=== PATIENT | female | born 1980 | race Caucasian/White ===

== ENCOUNTER 2016-08-27 11:47 | Emergency (ER) | payer OTHER ==
[2016-08-27] MEDS ORDERED: methylPREDNISolone INJ 125 MG/2 ML VIAL (J2930) As Ordered ONE (13:05)
[2016-08-27] MEDS ORDERED: KETOROLAC 30 MG/ML VIAL (J1885) As Ordered ONE (13:05)
[2016-08-27] MEDS ORDERED: IPRATROPIUM 0.5MG/ALBUTEROL 2.5MG INH SOL UD 3ML (DUONEB)(J7620) As Ordered ONE (13:21)
[2016-08-27 13:34] LABS: BASO # 0.1 K/mm3 (0.0-0.2); BASO % 2.3 % (0.0-1.0); EOS # 0.1 K/mm3 (0.0-0.50); EOS % 1.8 % (0.0-3.0); LARGE UNSTAINED CELL # 0.1 K/mm3 (0.0-0.4); LARGE UNSTAINED CELL % 2.5 % (0.0-4.0); LYMPH # 1.2 K/mm3 (1.5-4.5); LYMPH % 22.6 % (24.0-44.0); MEAN CORPUSCULAR HEMOGLOBIN 31.8 pg (27.0-33.0); MEAN CORPUSCULAR HGB CONC 34.5 g/dl (32.0-36.5); MEAN CORPUSCULAR VOLUME 92.2 fl (80.0-96.0); MONO # 0.7 K/mm3 (0.0-0.8); MONO % 14.1 % (0.0-5.0); NEUTROPHILS # 2.7 K/mm3 (1.8-7.7); NEUTROPHILS % 56.7 % (36.0-66.0); PLATELET COUNT, AUTOMATED 180 k/mm3 (150-450); RED CELL DISTRIBUTION WIDTH 13.3 % (11.5-14.5); WHITE BLOOD COUNT 4.8 K/mm3 (4.0-10.0)
[2016-08-27 13:40] LABS: INR 0.91
[2016-08-27 13:48] LABS: ANION GAP 9 MEQ/L (8-16); BLOOD UREA NITROGEN 13 MG/DL (7-18); CALCIUM LEVEL 9.2 MG/DL (8.5-10.1); CARBON DIOXIDE LEVEL 25 MEQ/L (21-32); CHLORIDE LEVEL 106 MEQ/L (98-107); CREATININE FOR GFR 1.03 MG/DL (0.55-1.02); GLOMERULAR FILTRATION RATE > 60.0 (>60); GLUCOSE, FASTING 83 MG/DL (70-105); SODIUM LEVEL 140 MEQ/L (136-145)
[2016-08-27] MEDS ORDERED: ISOVUE-370 76% 100ML VIAL (Q9967) As Ordered ONE (13:52)
--- NOTE | 2016-08-27 14:22 | REP ---
Clinical: Acute chest pain. Technique: Axial contrast enhanced images from the thoracic inlet to the upper abdomen using 100 ml Isovue 370 intravenous contrast material with coronal and sagittal re-formations. Findings: Satisfactory enhancement of the pulmonary vasculature is achieved and no filling defects are identified to suggest pulmonary embolus. Thoracic aorta is normal caliber without aneurysm or dissection. Heart and pericardium are normal. Bilateral lung aguirre are well aerated and clear without acute pulmonary parenchymal consolidation or atelectasis. No nodule or mass lesion. No pleural effusion/reaction. No pneumothorax. No adenopathy. Impression: No evidence for pulmonary embolus. No acute pleuroparenchymal or mediastinal process. Signed by Yazan Haskins MD 08/27/2016 02:13 P
--- NOTE | 2016-08-27 14:33 | EDDOCDS ---
Physician Documentation [facility] Name: Patience Tan Age: 36 yrs Sex: Female : 1980 Arrival Date: 08/27/2016 Time: 11:47 Bed I6 / 28 Private MD: WISAM MINOR Disposition: 08/27/16 14:19 Discharged to Home/Self Care. Impression: Chest pain, unspecified, Acute bronchitis. - Condition is Stable. - Discharge Instructions: Acute Bronchitis, Nonspecific Chest Pain. - Prescriptions for Prednisone 20 mg Oral Tablet - take 1 tablet by ORAL route once daily for 5 days; 5 tablet. Zithromax Z- Satish 250 mg Oral Tablet - take 1 tablet by ORAL route as directed for 5 days Day 1- take two tablets once. Day 2, 3, 4 , 5 take one tablet once daily.; 6 tablet. Albuterol Sulfate 90 mcg/actuation Inhalation HFA Aerosol Inhaler - inhale 2 puff by INHALATION route every 4 hours As needed; 1 Inhaler. - Medication Reconciliation, Local Pharmacy Hours form. - Follow up: Emergency Department; When: As needed; Reason: Worsening of conditions. Follow up: WISAM MINOR; When: Call to arrange an appointment; Reason: Wound/Symptom Recheck, Recheck today's complaints, Worsening of conditions, Continuance of care. - Problem is an ongoing problem. - Symptoms have improved. Historical: - Allergies: tylenol; - Home Meds: 1. none - PMHx: none; - PSHx: Cesearean Section; Tubal ligation; - Social history: Smoking status: Patient uses tobacco products, heavy tobacco smoker. Patient/guardian denies using alcohol, street drugs, No barriers to communication noted, The patient speaks fluent Uzbek, Speaks appropriately for age. - Family history: Not pertinent. - : The pt / caregiver states he / she is not on anticoagulants. Home medication list is obtained from the patient. - Exposure Risk Screening:: None identified. 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 8 in. (172.72 cm); Pain 6/10; 14:31 BP 109 / 68; Pulse 61; Resp 18; Temp 98.3(O); Pulse Ox 98% on R/A; Pain 0/10; kc3 11:49 Body Mass Index 33.45 (99.79 kg, 172.72 cm) cmb MDM: 13:00 IV Saline Lock ordered. cc10 13:00 Undress patient appropriately for examination ordered. cc10 13:00 ketorolac 30 mg IVP once ordered. cc10 13:00 Solu-MEDROL 125 mg IVP once ordered. cc10 13:00 Albuterol-Ipratropium 3 ml Inhalation once ordered. cc10 13:00 Call Respiratory ordered. cc10 13:02 Basic Metabolic Profile Ordered. EDMS 13:02 CBC with Diff Ordered. EDMS 13:02 Cardiac Injury Profile Ordered. EDMS 13:02 Partial Thromboplastin Time Ordered. EDMS 13:02 Prothrombin Time Profile\E\INR Ordered. EDMS 13:02 Troponin Ordered. EDMS 13:02 Call Respiratory complete. rs6 13:02 ECG WITH READING ER PHYS+CARDIAG ordered. EDMS 13:02 CT Chest Angio R/O PE Ordered. EDMS 13:05 Financial registration complete. pm4 13:05 [facility] Payment Agreement was scanned into luma-id and attached to record. pm4 13:47 CBC with Diff Reviewed. cc10 13:47 Partial Thromboplastin Time Reviewed. cc10 13:47 Prothrombin Time Profile\E\INR Reviewed. cc10 13:52 Basic Metabolic Profile Reviewed. cc10 13:52 Cardiac Injury Profile Reviewed. cc10 13:52 Troponin Reviewed. cc10 Administered Medications: 13:23 Drug: ketorolac 30 mg [ketorolac 30 mg/mL (1 mL) injection solution (1 mL)] Route: IVP; kc3 Site: left antecubital; 13:23 Drug: Solu-MEDROL 125 mg [Solu-Medrol 500 mg intravenous solution (125 mg)] Route: IVP; kc3 Site: left antecubital; 13:25 Drug: Albuterol-Ipratropium 3 ml [ipratropium-albuterol 0.5 mg-3 mg(2.5 mg base)/3 mL ac1 nebulization soln (3 mL)] Route: Inhalation; 13:28 Follow up: bs clear. eduar tx well. ac1 Signatures: Dispatcher [employer] Starla Sutton, RN RN ttb Jesus Segura, PA-C PA-C cc10 Luann Paul, CHANGE MANAGEMENT CHANGE MANAGEMENT rs6 Genny Crump,RN RN kc3 Jude Mathews, Reg Reg pm4 Fatou Blanco RT ac1 The chart was reviewed and I authenticate all verbal orders and agree with the evaluation and treatment provided.Attachments: 13:05 [facility] Payment Agreement pm4 MTDD
--- NOTE | 2016-08-27 14:33 | EDDOCDS ---
Nurse's Notes [facility] Name: Patience Tan Age: 36 yrs Sex: Female : 1980 Arrival Date: 08/27/2016 Time: 11:47 Bed I6 / 28 Private MD: WISAM MINOR Diagnosis: Chest pain, unspecified;Acute bronchitis Presentation: 08/27 12:05 Presenting complaint: Patient states: cough and SOB x2 days. Productive cough. Adult ttb Sepsis Screening: The patient does not have new or worsening altered mentation. Patient's respiratory rate is less than 22. Systolic blood pressure is greater than 100. Patient has a qSOFA score of 0- Negative Sepsis Screen. Suicide/Homicide risk assessment- the patient denies having any suicidal and/or homicidal ideations and does not present with any other emotional, behavioral or mental health complaints. Status: Patient is not a director of ancillary services or dependent. Transition of care: patient was not received from another setting of care. 12:05 Acuity: NESS Level 4 ttb 12:05 Method Of Arrival: Walkin/Carried/Asstd ttb Triage Assessment: 12:07 General: Appears in no apparent distress, well nourished, well groomed, Behavior is ttb appropriate for age, cooperative, pleasant. Pain: Location: chest with deep respiration 6/10. Pt Declines HIV testing. Neurological: Level of Consciousness is awake, alert. EENT: Denies nasal congestion, nasal discharge. Cardiovascular: Chest pain is denied. Respiratory: Airway is patent Respiratory effort is even, unlabored, Reports shortness of breath at rest on exertion since x2 days cough that is productive, pain with respiration the patient has mild shortness of breath. GI: Denies nausea, vomiting, pain. Derm: Skin is normal. Injury Description: No known injury. 14:32 Respiratory: Onset: The symptoms/episode began/occurred 2 days prior. 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 none - PMHx: none; - PSHx: Cesearean Section; Tubal ligation; - Social history: Smoking status: Patient uses tobacco products, heavy tobacco smoker. Patient/guardian denies using alcohol, street drugs, No barriers to communication noted, The patient speaks fluent Upper Sorbian, Speaks appropriately for age. - Family history: Not pertinent. - : The pt / caregiver states he / she is not on anticoagulants. Home medication list is obtained from the patient. - Exposure Risk Screening:: None identified. Screenin:31 Screening information is obtained from the patient. Fall risk: No risks identified. kc3 Assistance ADL's: requires no assistance with activities of daily living. Abuse/DV Screen: The patient / caregiver reports he/she is: not in a situation that causes fear, pain or injury. Nutritional screening: No deficits noted. Advance Directives: Currently, there is no health care proxy. home support is adequate. Assessment: 13:23 General: Appears in no apparent distress, comfortable, Behavior is appropriate for age, kc3 cooperative. Pain: Location: left lower chest. Neurological: Level of Consciousness is awake, alert, obeys commands, Oriented to person, place, time. Cardiovascular: Capillary refill < 3 seconds. Cardiovascular: Chest pain radiates Does not radiate. Respiratory: Airway is patent Respiratory effort is even, labored, Respiratory pattern is regular, symmetrical, Breath sounds are clear Reports shortness of breath at rest on exertion. Derm: Skin is pink, warm & dry. Musculoskeletal: Circulation, motion, and sensation intact. 14:06 Reassessment: Patient appears in no apparent distress at this time. srm 14:06 Respiratory: Airway is patent Respiratory effort is even, unlabored, Respiratory srm pattern is regular, symmetrical. 14:30 General: Appears in no apparent distress, comfortable, Behavior is appropriate for age, kc3 cooperative. Pain: Denies pain. Neurological: Level of Consciousness is awake, alert, obeys commands, Oriented to person, place, time. Respiratory: Respiratory effort is even, unlabored. Derm: Skin is pink, warm & dry. Vital Signs: 11:49 BP 127 / 66; Pulse 69; Resp 20; Temp 97.6(O); Pulse Ox 95% ; Weight 99.79 kg; Height 5 cmb ft. 8 in. (172.72 cm); Pain 6/10; 14:31 BP 109 / 68; Pulse 61; Resp 18; Temp 98.3(O); Pulse Ox 98% on R/A; Pain 0/10; kc3 11:49 Body Mass Index 33.45 (99.79 kg, 172.72 cm) cmb Vitals: 11:49 Log In Time: August 27, 2016 at 11:47. cmb ED Course: 11:48 Patient visited by Alka Ugarte. cmb 11:48 WISAM MINOR is Private Physician. cmb 11:48 Patient moved to Waiting cmb 11:52 Patient moved to Pre RCE cmb 12:06 Triage Initiated ttb 12:09 Patient visited by Starla Tomlinson, NOAH. ttb 12:10 Patient visited by Starla Tomlinson RN. ttb 12:32 Patient moved to Triage 2 jf3 12:48 Jesus Segura PA-C is PHCP. cc10 12:48 Lorraine Stewart MD is Attending Physician. cc10 12:48 Patient visited by Jesus Segura PA-C. cc10 12:48 Patient visited by Jesus Segura PA-C. cc10 13:01 Patient moved to I / jf3 13:05 [facility] Payment Agreement was scanned into [employer] and attached to record. pm4 13:11 Patient visited by Chepe Baldwin PCA. jrd 13:11 EKG done. (by ED staff). Reviewed by Jesus Segura PA-C. jrd 13:12 Patient name changed from Patience\S\\S\Voorhis\S\ to Patience\S\Taryn\S\Voorhis. EDMS 13:23 Basic Metabolic Profile Sent. kc3 13:23 CBC with Diff Sent. kc3 13:23 Cardiac Injury Profile Sent. kc3 13:23 Partial Thromboplastin Time Sent. kc3 13:23 Prothrombin Time Profile\E\INR Sent. kc3 13:23 Troponin Sent. kc3 13:25 Inserted saline lock: 20 gauge in left antecubital area and blood collected. The kc3 patient tolerated the procedure well. 14:07 Patient visited by Dejah Guan RN. srm 14:18 WISAM MINOR is Referral Physician. cc10 14:31 Discontinued IV lock intact, bleeding controlled, pressure dressing applied, No kc3 redness/swelling at site. No procedures done that require assistance. 14:32 The patient / caregiver is instructed regarding the plan of care and ED course. kc3 Administered Medications: 13:23 Drug: ketorolac 30 mg [ketorolac 30 mg/mL (1 mL) injection solution (1 mL)] Route: IVP; kc3 Site: left antecubital; 13:23 Drug: Solu-MEDROL 125 mg [Solu-Medrol 500 mg intravenous solution (125 mg)] Route: IVP; kc3 Site: left antecubital; 13:25 Drug: Albuterol-Ipratropium 3 ml [ipratropium-albuterol 0.5 mg-3 mg(2.5 mg base)/3 mL ac1 nebulization soln (3 mL)] Route: Inhalation; 13:28 Follow up: bs clear. eduar tx well. ac1 Intake: RT: 13:26 Respiratory: Breath sounds are clear bilaterally. ac1 13:26 Initial Med Neb Given as ordered Patient was instructed and evaluated on procedure. ac1 Order Results: Lab Order: Basic Metabolic Profile; SPEC'M 08/27/16 13:21 Test: GLUCOSE, FASTING; Value: 83; Range: 70-105; Units: MG/DL; Status: F Test: BLOOD UREA NITROGEN; Value: 13; Range: 7-18; Units: MG/DL; Status: F Test: CREATININE FOR GFR; Value: 1.03; Range: 0.55-1.02; Abnormal: Above high normal; Units: MG/DL; Status: F Test: GLOMERULAR FILTRATION RATE; Value: > 60.0; Range: >60; Status: F Test: SODIUM LEVEL; Value: 140; Range: 136-145; Units: MEQ/L; Status: F Test: POTASSIUM SERUM; Value: 4.0; Range: 3.5-5.1; Units: MEQ/L; Status: F Test: CHLORIDE LEVEL; Value: 106; Range: 98-107; Units: MEQ/L; Status: F Test: CARBON DIOXIDE LEVEL; Value: 25; Range: 21-32; Units: MEQ/L; Status: F Test: ANION GAP; Value: 9; Range: 8-16; Units: MEQ/L; Status: F Test: CALCIUM LEVEL; Value: 9.2; Range: 8.5-10.1; Units: MG/DL; Status: F Test Note: ; Units are mL/min/1.73 m2 Chronic Kidney Disease Staging per NKF: Stage I & II GFR >=60 Normal to Mildly Decreased Stage III GFR 30-59 Moderately Decreased Stage IV GFR 15-29 Severely Decreased Stage V GFR <15 Very Little GFR Left ESRD GFR <15 on PIG FARM MANAGER Lab Order: CBC with Diff; SPEC'M 08/27/16 13:21 Test: WHITE BLOOD COUNT; Value: 4.8; Range: 4.0-10.0; Units: K/mm3; Status: F Test: RED BLOOD COUNT; Value: 5.04; Range: 4.00-5.40; Units: M/mm3; Status: F Test: HEMOGLOBIN; Value: 16.0; Range: 12.0-16.0; Units: g/dl; Status: F Test: HEMATOCRIT; Value: 46.5; Range: 36.0-47.0; Units: %; Status: F Test: MEAN CORPUSCULAR VOLUME; Value: 92.2; Range: 80.0-96.0; Units: fl; Status: F Test: MEAN CORPUSCULAR HEMOGLOBIN; Value: 31.8; Range: 27.0-33.0; Units: pg; Status: F Test: MEAN CORPUSCULAR HGB CONC; Value: 34.5; Range: 32.0-36.5; Units: g/dl; Status: F Test: RED CELL DISTRIBUTION WIDTH; Value: 13.3; Range: 11.5-14.5; Units: %; Status: F Test: PLATELET COUNT, AUTOMATED; Value: 180; Range: 150-450; Units: k/mm3; Status: F Test: NEUTROPHILS %; Value: 56.7; Range: 36.0-66.0; Units: %; Status: F Test: LYMPH %; Value: 22.6; Range: 24.0-44.0; Abnormal: Below low normal; Units: %; Status: F Test: MONO %; Value: 14.1; Range: 0.0-5.0; Abnormal: Above high normal; Units: %; Status: F Test: EOS %; Value: 1.8; Range: 0.0-3.0; Units: %; Status: F Test: BASO %; Value: 2.3; Range: 0.0-1.0; Abnormal: Above high normal; Units: %; Status: F Test: LARGE UNSTAINED CELL %; Value: 2.5; Range: 0.0-4.0; Units: %; Status: F Test: NEUTROPHILS #; Value: 2.7; Range: 1.8-7.7; Units: K/mm3; Status: F Test: LYMPH #; Value: 1.2; Range: 1.5-4.5; Abnormal: Below low normal; Units: K/mm3; Status: F Test: MONO #; Value: 0.7; Range: 0.0-0.8; Units: K/mm3; Status: F Test: EOS #; Value: 0.1; Range: 0.0-0.50; Units: K/mm3; Status: F Test: BASO #; Value: 0.1; Range: 0.0-0.2; Units: K/mm3; Status: F Test: LARGE UNSTAINED CELL #; Value: 0.1; Range: 0.0-0.4; Units: K/mm3; Status: F Lab Order: Cardiac Injury Profile; [facility] 08/27/16 13:21 Test: CPK CREATINE PHOSPHOKINASE; Value: 46; Range: 26-192; Units: U/L; Status: F Test: CK-MB VALUE MASS; Value: 1.0; Range: 0.0-3.6; Units: NG/ML; Status: F Test: MB/CK RELATIVE INDEX; Value: 2.17; Range: < OR =4; Status: F Test Note: ; DIAGNOSIS CRITERIA MMB ng/ml Relative Index (RI) NON-AMI < or = 5 N/A SIM[place]ON ZONE > 5 < or = 4 AMI > 5 > 4 Lab Order: Partial Thromboplastin Time; [facility] 08/27/16 13:20 Test: PARTIAL THROMBOPLASTIN TIME; Value: 29.2; Range: 26.6-37.1; Units: SECONDS; Status: F Lab Order: Prothrombin Time Profile\E\INR; [facility] 08/27/16 13:20 Test: PROTHROMBIN TIME; Value: 12.4; Range: 12.3-14.5; Units: SECONDS; Status: F Test: INR; Value: 0.91; Status: F Test Note: ; THERAPUTIC HUMAN INR VALUES INDICATIONS NORMAL RANGES PROPHYLAXIS/TREATMENT OF: VENOUS THROMBOSIS 2.0-3.0 PULMONARY EMBOLISM 2.0-3.0 PREVENTION OF SYSTEMIC EMBOLISM FROM: TISSUE HEART VALVES 2.0-3.0 ACUTE MYOCARDIAL INFARCTION 2.0-3.0 VALVULAR HEART DISEASE 2.0-3.0 ATRIAL FIBRILLATION 2.0-3.0 MECHANICAL VALVES(HIGH RISK) 2.5-3.5 RECURRENT MYOCARDIAL INFARCTION 2.5-3.5 Lab Order: Troponin; SPEC'M 08/27/16 13:21 Test: TROPONIN I; Value: < 0.02; Range: < 0.10; Units: NG/ML; Status: F Test Note: ; Troponin I Reference Interval for Expand Beyond LOCI: 99th Percentile= 0.00-0.045 ng/ml Risk Stratification: <= 0.10 ng/ml Decreased Risk for Adverse Clinical Events. 0.10-1.50 ng/ml Increased Risk for Adverse Clinical Events. Evaluation of additional criterion and/or repeat testing in 2-6 hours is suggested to rule out myocardial damage. >= 1.50 ng/ml Indicative of Myocardial Injury. Outcome: 14:19 Discharge ordered by Provider. cc10 14:32 Discharge Assessment: Patient awake, alert and oriented x 3. No cognitive and/or kc3 functional deficits noted. Patient verbalized understanding of disposition instructions. patient administered narcotics - no. The following High Risk Discharge criteria are identified: None. Condition: stable. Discharge instructions given to patient, Instructed on discharge instructions, follow up and referral plans. medication usage, Demonstrated understanding of instructions, medications, Pt was receptive of discharge instructions/ teaching. Prescriptions given X 3. Property :Personal belongings accompany Pt. 14:32 CT Study completed. kc3 14:33 Patient left the ED. kc3 Signatures: Dispatcher [employer] EDMS Dejah Guan, RN RN Fatou Rodriguez,RT RT ac1 Alka Ugarte cmStarla Hawley RN RN ttb Jesus Segura, PA-C PA-C cc10 Chepe Baldwin, [facility] DIRECTOR Genny PalenciaRN RN kc3 Jostin Brizuela,NOAH RN jf3 Jude Mathews, Reg Reg pm4 Corrections: (The following items were deleted from the chart) 13:26 13:26 Subsequent Med Neb Given as ordered Patient was reinforced on procedure ac1 ac1 14:32 14:32 No special radiology studies were completed kc3 kc3 MTDD
--- NOTE | 2016-08-27 18:12 | ECGEPIP ---
Stationary ECG Study 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
--- NOTE | 2016-08-29 15:34 | EDDOCDS ---
Physician Documentation [facility] Name: Patience Tan Age: 36 yrs Sex: Female : 1980 Arrival Date: 08/27/2016 Time: 11:47 Bed I6 / 28 Private MD: WISAM MINOR Disposition: 08/27/16 14:19 Discharged to Home/Self Care. Impression: Chest pain, unspecified, Acute bronchitis. - Condition is Stable. - Discharge Instructions: Acute Bronchitis, Nonspecific Chest Pain. - Prescriptions for Prednisone 20 mg Oral Tablet - take 1 tablet by ORAL route once daily for 5 days; 5 tablet. Zithromax Z- Satish 250 mg Oral Tablet - take 1 tablet by ORAL route as directed for 5 days Day 1- take two tablets once. Day 2, 3, 4 , 5 take one tablet once daily.; 6 tablet. Albuterol Sulfate 90 mcg/actuation Inhalation HFA Aerosol Inhaler - inhale 2 puff by INHALATION route every 4 hours As needed; 1 Inhaler. - Medication Reconciliation, Local Pharmacy Hours form. - Follow up: Emergency Department; When: As needed; Reason: Worsening of conditions. Follow up: WISAM MINOR; When: Call to arrange an appointment; Reason: Wound/Symptom Recheck, Recheck today's complaints, Worsening of conditions, Continuance of care. - Problem is an ongoing problem. - Symptoms have improved. Historical: - Allergies: tylenol; - Home Meds: 1. none - PMHx: none; - PSHx: Cesearean Section; Tubal ligation; - Social history: Smoking status: Patient uses tobacco products, heavy tobacco smoker. Patient/guardian denies using alcohol, street drugs, No barriers to communication noted, The patient speaks fluent Irish, Speaks appropriately for age. - Family history: Not pertinent. - : The pt / caregiver states he / she is not on anticoagulants. Home medication list is obtained from the patient. - Exposure Risk Screening:: None identified. 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 8 in. (172.72 cm); Pain 6/10; 14:31 BP 109 / 68; Pulse 61; Resp 18; Temp 98.3(O); Pulse Ox 98% on R/A; Pain 0/10; kc3 11:49 Body Mass Index 33.45 (99.79 kg, 172.72 cm) cmb MDM: 13:00 IV Saline Lock ordered. cc10 13:00 Undress patient appropriately for examination ordered. cc10 13:00 ketorolac 30 mg IVP once ordered. cc10 13:00 Solu-MEDROL 125 mg IVP once ordered. cc10 13:00 Albuterol-Ipratropium 3 ml Inhalation once ordered. cc10 13:00 Call Respiratory ordered. cc10 13:02 Basic Metabolic Profile Ordered. EDMS 13:02 CBC with Diff Ordered. EDMS 13:02 Cardiac Injury Profile Ordered. EDMS 13:02 Partial Thromboplastin Time Ordered. EDMS 13:02 Prothrombin Time Profile\E\INR Ordered. EDMS 13:02 Troponin Ordered. EDMS 13:02 Call Respiratory complete. rs6 13:02 ECG WITH READING ER PHYS+CARDIAG ordered. EDMS 13:02 CT Chest Angio R/O PE Ordered. EDMS 13:05 Financial registration complete. pm4 13:05 [facility] [place] Payment Agreement was scanned into [employer] and attached to record. pm4 13:47 CBC with Diff Reviewed. cc10 13:47 Partial Thromboplastin Time Reviewed. cc10 13:47 Prothrombin Time Profile\E\INR Reviewed. cc10 13:52 Basic Metabolic Profile Reviewed. cc10 13:52 Cardiac Injury Profile Reviewed. cc10 13:52 Troponin Reviewed. cc10 15:26 T-Sheet-- Draft Copy was scanned into [employer] and attached to record. gb 15:26 ECG/EKG was scanned into [employer] and attached to record. gb Administered Medications: 13:23 Drug: ketorolac 30 mg [ketorolac 30 mg/mL (1 mL) injection solution (1 mL)] Route: IVP; kc3 Site: left antecubital; 13:23 Drug: Solu-MEDROL 125 mg [Solu-Medrol 500 mg intravenous solution (125 mg)] Route: IVP; kc3 Site: left antecubital; 13:25 Drug: Albuterol-Ipratropium 3 ml [ipratropium-albuterol 0.5 mg-3 mg(2.5 mg base)/3 mL ac1 nebulization soln (3 mL)] Route: Inhalation; 13:28 Follow up: bs clear. eduar tx well. ac1 Signatures: Dispatcher [employer] EDMS Priya Root, Reg Reg gb Starla Tomlinson, RN RN ttb Jesus Segura, PALisaC PA-C cc10 Luann Paul, EDGER AUTOMATIC EDGER AUTOMATIC rs6 Genny Crump RN RN kc3 Jude Mathews, Reg Reg pm4 Fatou Blanco RT ac1 The chart was reviewed and I authenticate all verbal orders and agree with the evaluation and treatment provided.Attachments: 13:05 [facility] Payment Agreement pm4 15:26 T-Sheet-- Draft Copy gb 15:26 ECG/EKG gb Chart Complete MTDD
--- NOTE | 2016-08-29 15:34 | EDDOCDS ---
Nurse's Notes [facility] Name: Patience Morris Age: 36 yrs Sex: Female : 1980 Arrival Date: 08/27/2016 Time: 11:47 Bed I6 / 28 Private MD: WISAM MINOR Diagnosis: Chest pain, unspecified;Acute bronchitis Presentation: 08/27 12:05 Presenting complaint: Patient states: cough and SOB x2 days. Productive cough. Adult ttb Sepsis Screening: The patient does not have new or worsening altered mentation. Patient's respiratory rate is less than 22. Systolic blood pressure is greater than 100. Patient has a qSOFA score of 0- Negative Sepsis Screen. Suicide/Homicide risk assessment- the patient denies having any suicidal and/or homicidal ideations and does not present with any other emotional, behavioral or mental health complaints. Status: Patient is not a field servicer or dependent. Transition of care: patient was not received from another setting of care. 12:05 Acuity: NESS Level 4 ttb 12:05 Method Of Arrival: Walkin/Carried/Asstd ttb Triage Assessment: 12:07 General: Appears in no apparent distress, well nourished, well groomed, Behavior is ttb appropriate for age, cooperative, pleasant. Pain: Location: chest with deep respiration 6/10. Pt Declines HIV testing. Neurological: Level of Consciousness is awake, alert. EENT: Denies nasal congestion, nasal discharge. Cardiovascular: Chest pain is denied. Respiratory: Airway is patent Respiratory effort is even, unlabored, Reports shortness of breath at rest on exertion since x2 days cough that is productive, pain with respiration the patient has mild shortness of breath. GI: Denies nausea, vomiting, pain. Derm: Skin is normal. Injury Description: No known injury. 14:32 Respiratory: Onset: The symptoms/episode began/occurred 2 days prior. kc3 QA SPECIALIST: 12:07 LMP 08/17/2016 ttb Historical: - Allergies: tylenol; - Home Meds: 1. none - PMHx: none; - PSHx: Cesearean Section; Tubal ligation; - Social history: Smoking status: Patient uses tobacco products, heavy tobacco smoker. Patient/guardian denies using alcohol, street drugs, No barriers to communication noted, The patient speaks fluent Yi, Speaks appropriately for age. - Family history: Not pertinent. - : The pt / caregiver states he / she is not on anticoagulants. Home medication list is obtained from the patient. - Exposure Risk Screening:: None identified. Screenin:31 Screening information is obtained from the patient. Fall risk: No risks identified. kc3 Assistance ADL's: requires no assistance with activities of daily living. Abuse/DV Screen: The patient / caregiver reports he/she is: not in a situation that causes fear, pain or injury. Nutritional screening: No deficits noted. Advance Directives: Currently, there is no health care proxy. home support is adequate. Assessment: 13:23 General: Appears in no apparent distress, comfortable, Behavior is appropriate for age, kc3 cooperative. Pain: Location: left lower chest. Neurological: Level of Consciousness is awake, alert, obeys commands, Oriented to person, place, time. Cardiovascular: Capillary refill < 3 seconds. Cardiovascular: Chest pain radiates Does not radiate. Respiratory: Airway is patent Respiratory effort is even, labored, Respiratory pattern is regular, symmetrical, Breath sounds are clear Reports shortness of breath at rest on exertion. Derm: Skin is pink, warm & dry. Musculoskeletal: Circulation, motion, and sensation intact. 14:06 Reassessment: Patient appears in no apparent distress at this time. srm 14:06 Respiratory: Airway is patent Respiratory effort is even, unlabored, Respiratory srm pattern is regular, symmetrical. 14:30 General: Appears in no apparent distress, comfortable, Behavior is appropriate for age, kc3 cooperative. Pain: Denies pain. Neurological: Level of Consciousness is awake, alert, obeys commands, Oriented to person, place, time. Respiratory: Respiratory effort is even, unlabored. Derm: Skin is pink, warm & dry. Vital Signs: 11:49 BP 127 / 66; Pulse 69; Resp 20; Temp 97.6(O); Pulse Ox 95% ; Weight 99.79 kg; Height 5 cmb ft. 8 in. (172.72 cm); Pain 6/10; 14:31 BP 109 / 68; Pulse 61; Resp 18; Temp 98.3(O); Pulse Ox 98% on R/A; Pain 0/10; kc3 11:49 Body Mass Index 33.45 (99.79 kg, 172.72 cm) cmb Vitals: 11:49 Log In Time: August 27, 2016 at 11:47. cmb ED Course: 11:48 Patient visited by Alka Ugarte. cmb 11:48 WISAM MINOR is Private Physician. cmb 11:48 Patient moved to Waiting cmb 11:52 Patient moved to Pre RCE cmb 12:06 Triage Initiated ttb 12:09 Patient visited by Starla Tomlinson, NOAH. ttb 12:10 Patient visited by Starla Tomlinson RN. ttb 12:32 Patient moved to Triage 2 jf3 12:48 Jesus Segura PA-C is PHCP. cc10 12:48 Lorraine Stewart MD is Attending Physician. cc10 12:48 Patient visited by Jesus Segura PA-C. cc10 12:48 Patient visited by Jesus Segura PA-C. cc10 13:01 Patient moved to I / jf3 13:05 [facility] Payment Agreement was scanned into [employer]! and attached to record. pm4 13:11 Patient visited by Chepe Baldwin PCA. jrd 13:11 EKG done. (by ED staff). Reviewed by Jesus Segura PA-C. jrd 13:12 Patient name changed from Patience\S\\S\Voorhis\S\ to Patience\S\Taryn\S\Voorhis. EDMS 13:23 Basic Metabolic Profile Sent. kc3 13:23 CBC with Diff Sent. kc3 13:23 Cardiac Injury Profile Sent. kc3 13:23 Partial Thromboplastin Time Sent. kc3 13:23 Prothrombin Time Profile\E\INR Sent. kc3 13:23 Troponin Sent. kc3 13:25 Inserted saline lock: 20 gauge in left antecubital area and blood collected. The kc3 patient tolerated the procedure well. 14:07 Patient visited by Dejah Guan RN. srm 14:18 WISAM MINOR is Referral Physician. cc10 14:31 Discontinued IV lock intact, bleeding controlled, pressure dressing applied, No kc3 redness/swelling at site. No procedures done that require assistance. 14:32 The patient / caregiver is instructed regarding the plan of care and ED course. kc3 15:10 CT Chest Angio R/O PE Returned. EDMS 15:26 T-Sheet-- Draft Copy was scanned into [employer] and attached to record. gb 15:26 ECG/EKG was scanned into [employer] and attached to record. gb 19:13 EKG-ADULT Returned. EDMS Administered Medications: 13:23 Drug: ketorolac 30 mg [ketorolac 30 mg/mL (1 mL) injection solution (1 mL)] Route: IVP; kc3 Site: left antecubital; 13:23 Drug: Solu-MEDROL 125 mg [Solu-Medrol 500 mg intravenous solution (125 mg)] Route: IVP; kc3 Site: left antecubital; 13:25 Drug: Albuterol-Ipratropium 3 ml [ipratropium-albuterol 0.5 mg-3 mg(2.5 mg base)/3 mL ac1 nebulization soln (3 mL)] Route: Inhalation; 13:28 Follow up: bs clear. eduar tx well. ac1 Intake: RT: 13:26 Respiratory: Breath sounds are clear bilaterally. ac1 13:26 Initial Med Neb Given as ordered Patient was instructed and evaluated on procedure. ac1 Order Results: Lab Order: Basic Metabolic Profile; SPEC'M 08/27/16 13:21 Test: GLUCOSE, FASTING; Value: 83; Range: 70-105; Units: MG/DL; Status: F Test: BLOOD UREA NITROGEN; Value: 13; Range: 7-18; Units: MG/DL; Status: F Test: CREATININE FOR GFR; Value: 1.03; Range: 0.55-1.02; Abnormal: Above high normal; Units: MG/DL; Status: F Test: GLOMERULAR FILTRATION RATE; Value: > 60.0; Range: >60; Status: F Test: SODIUM LEVEL; Value: 140; Range: 136-145; Units: MEQ/L; Status: F Test: POTASSIUM SERUM; Value: 4.0; Range: 3.5-5.1; Units: MEQ/L; Status: F Test: CHLORIDE LEVEL; Value: 106; Range: 98-107; Units: MEQ/L; Status: F Test: CARBON DIOXIDE LEVEL; Value: 25; Range: 21-32; Units: MEQ/L; Status: F Test: ANION GAP; Value: 9; Range: 8-16; Units: MEQ/L; Status: F Test: CALCIUM LEVEL; Value: 9.2; Range: 8.5-10.1; Units: MG/DL; Status: F Test Note: ; Units are mL/min/1.73 m2 Chronic Kidney Disease Staging per NKF: Stage I & II GFR >=60 Normal to Mildly Decreased Stage III GFR 30-59 Moderately Decreased Stage IV GFR 15-29 Severely Decreased Stage V GFR <15 Very Little GFR Left ESRD GFR <15 on FUEL STORAGE TECHNICIAN Lab Order: CBC with Diff; SPEC'M 08/27/16 13:21 Test: WHITE BLOOD COUNT; Value: 4.8; Range: 4.0-10.0; Units: K/mm3; Status: F Test: RED BLOOD COUNT; Value: 5.04; Range: 4.00-5.40; Units: M/mm3; Status: F Test: HEMOGLOBIN; Value: 16.0; Range: 12.0-16.0; Units: g/dl; Status: F Test: HEMATOCRIT; Value: 46.5; Range: 36.0-47.0; Units: %; Status: F Test: MEAN CORPUSCULAR VOLUME; Value: 92.2; Range: 80.0-96.0; Units: fl; Status: F Test: MEAN CORPUSCULAR HEMOGLOBIN; Value: 31.8; Range: 27.0-33.0; Units: pg; Status: F Test: MEAN CORPUSCULAR HGB CONC; Value: 34.5; Range: 32.0-36.5; Units: g/dl; Status: F Test: RED CELL DISTRIBUTION WIDTH; Value: 13.3; Range: 11.5-14.5; Units: %; Status: F Test: PLATELET COUNT, AUTOMATED; Value: 180; Range: 150-450; Units: k/mm3; Status: F Test: NEUTROPHILS %; Value: 56.7; Range: 36.0-66.0; Units: %; Status: F Test: LYMPH %; Value: 22.6; Range: 24.0-44.0; Abnormal: Below low normal; Units: %; Status: F Test: MONO %; Value: 14.1; Range: 0.0-5.0; Abnormal: Above high normal; Units: %; Status: F Test: EOS %; Value: 1.8; Range: 0.0-3.0; Units: %; Status: F Test: BASO %; Value: 2.3; Range: 0.0-1.0; Abnormal: Above high normal; Units: %; Status: F Test: LARGE UNSTAINED CELL %; Value: 2.5; Range: 0.0-4.0; Units: %; Status: F Test: NEUTROPHILS #; Value: 2.7; Range: 1.8-7.7; Units: K/mm3; Status: F Test: LYMPH #; Value: 1.2; Range: 1.5-4.5; Abnormal: Below low normal; Units: K/mm3; Status: F Test: MONO #; Value: 0.7; Range: 0.0-0.8; Units: K/mm3; Status: F Test: EOS #; Value: 0.1; Range: 0.0-0.50; Units: K/mm3; Status: F Test: BASO #; Value: 0.1; Range: 0.0-0.2; Units: K/mm3; Status: F Test: LARGE UNSTAINED CELL #; Value: 0.1; Range: 0.0-0.4; Units: K/mm3; Status: F Lab Order: Cardiac Injury Profile; [facility] 13:21 Test: CPK CREATINE PHOSPHOKINASE; Value: 46; Range: 26-192; Units: U/L; Status: F Test: CK-MB VALUE MASS; Value: 1.0; Range: 0.0-3.6; Units: NG/ML; Status: F Test: MB/CK RELATIVE INDEX; Value: 2.17; Range: < OR =4; Status: F Test Note: ; DIAGNOSIS CRITERIA MMB ng/ml Relative Index (RI) NON-AMI < or = 5 N/A SIMPSON ZONE > 5 < or = 4 AMI > 5 > 4 Lab Order: Partial Thromboplastin Time; [facility] 08/27/16 13:20 Test: PARTIAL THROMBOPLASTIN TIME; Value: 29.2; Range: 26.6-37.1; Units: SECONDS; Status: F Lab Order: Prothrombin Time Profile\E\INR; [facility] 08/27/16 13:20 Test: PROTHROMBIN TIME; Value: 12.4; Range: 12.3-14.5; Units: SECONDS; Status: F Test: INR; Value: 0.91; Status: F Test Note: ; THERAPUTIC HUMAN INR VALUES INDICATIONS NORMAL RANGES PROPHYLAXIS/TREATMENT OF: VENOUS THROMBOSIS 2.0-3.0 PULMONARY EMBOLISM 2.0-3.0 PREVENTION OF SYSTEMIC EMBOLISM FROM: TISSUE HEART VALVES 2.0-3.0 ACUTE MYOCARDIAL INFARCTION 2.0-3.0 VALVULAR HEART DISEASE 2.0-3.0 ATRIAL FIBRILLATION 2.0-3.0 MECHANICAL VALVES(HIGH RISK) 2.5-3.5 RECURRENT MYOCARDIAL INFARCTION 2.5-3.5 Lab Order: Troponin; SPEC'M 08/27/16 13:21 Test: TROPONIN I; Value: < 0.02; Range: < 0.10; Units: NG/ML; Status: F Test Note: ; Troponin I Reference Interval for Siemens SCHAD LOCI: 99th Percentile= 0.00-0.045 ng/ml Risk Stratification: <= 0.10 ng/ml Decreased Risk for Adverse Clinical Events. 0.10-1.50 ng/ml Increased Risk for Adverse Clinical Events. Evaluation of additional criterion and/or repeat testing in 2-6 hours is suggested to rule out myocardial damage. >= 1.50 ng/ml Indicative of Myocardial Injury. Radiology Order: EKG-ADULT Test: EKG-ADULT REASON FOR EXAMINATION: Chest Pain; Stationary ECG Study; [facility] - ED; ; Test Date: 2016-08-27; Pat Name: PATIENCE MORRIS Department:; Room: -; Gender: F Cda Teacher: alondra; : 1980 Requested By: Jesus Segura PA-C; Order Number: [id number] Reading MD: Juliette Connors; Measurements; Intervals [place]; Rate: 46 P: 48; TN: 143 QRS: 62; QRSD: 79 T: 49; QT: 421; QTc: 370; Interpretive Statements; SINUS BRADYCARDIA; NO PRIOR FOR COMPARISON; Electronically Signed On 08-27-2016 18:11:48 EST by Juliette Connors; Radiology Order: CT Chest Angio R/O PE Test: CT Chest Angio R/O PE REASON FOR EXAMINATION: Chest Pain; Clinical: Acute chest pain.; ; Technique: Axial contrast enhanced images from the thoracic inlet to the upper; abdomen using 100 ml Isovue 370 intravenous contrast material with coronal and; sagittal re-formations.; ; Findings: Satisfactory enhancement of the pulmonary vasculature is achieved and; no filling defects are identified to suggest pulmonary embolus. Thoracic aorta; is normal caliber without aneurysm or dissection. Heart and pericardium are; normal. Bilateral lung aguirre are well aerated and clear without acute pulmonary; parenchymal consolidation or atelectasis. No nodule or mass lesion. No pleural; effusion/reaction. No pneumothorax. No adenopathy.; ; Impression:; No evidence for pulmonary embolus.; No acute pleuroparenchymal or mediastinal process.; ; ; Signed by; Yazan Haskins MD 08/27/2016 02:13 P; Outcome: 14:19 Discharge ordered by Provider. cc10 14:32 Discharge Assessment: Patient awake, alert and oriented x 3. No cognitive and/or kc3 functional deficits noted. Patient verbalized understanding of disposition instructions. patient administered narcotics - no. The following High Risk Discharge criteria are identified: None. Condition: stable. Discharge instructions given to patient, Instructed on discharge instructions, follow up and referral plans. medication usage, Demonstrated understanding of instructions, medications, Pt was receptive of discharge instructions/ teaching. Prescriptions given X 3. Property :Personal belongings accompany Pt. 14:32 CT Study completed. kc3 14:33 Patient left the ED. 3 Signatures: Dispatcher [employer] EDMS Dejah Guan RN RN [facility] Priya Root, Reg Reg gb Fatou Blanco,RT RT ac1 Alka Ugarte cmStarla Hawley RN RN ttb Jesus Segura, PA-C PA-C cc10 Chepe Baldwin, SPINAL SURGEON SPINAL SURGEON jrd Genny Crump RN RN kc3 Jostin Brizuela,NOAH RN jf3 Jude Mathews, Reg Reg pm4 Corrections: (The following items were deleted from the chart) 13:26 13:26 Subsequent Med Neb Given as ordered Patient was reinforced on procedure ac1 ac1 14:32 14:32 No special radiology studies were completed kc3 kc3 Chart Complete MTDD
--- NOTE | 2016-08-29 15:34 | EDDOCDS ---
Physician Documentation [facility] Name: Patience Tan Age: 36 yrs Sex: Female : 1980 Arrival Date: 08/27/2016 Time: 11:47 Bed I6 / 28 Private MD: WISAM MINOR Disposition: 08/27/16 14:19 Discharged to Home/Self Care. Impression: Chest pain, unspecified, Acute bronchitis. - Condition is Stable. - Discharge Instructions: Acute Bronchitis, Nonspecific Chest Pain. - Prescriptions for Prednisone 20 mg Oral Tablet - take 1 tablet by ORAL route once daily for 5 days; 5 tablet. Zithromax Z- Satish 250 mg Oral Tablet - take 1 tablet by ORAL route as directed for 5 days Day 1- take two tablets once. Day 2, 3, 4 , 5 take one tablet once daily.; 6 tablet. Albuterol Sulfate 90 mcg/actuation Inhalation HFA Aerosol Inhaler - inhale 2 puff by INHALATION route every 4 hours As needed; 1 Inhaler. - Medication Reconciliation, Local Pharmacy Hours form. - Follow up: Emergency Department; When: As needed; Reason: Worsening of conditions. Follow up: WISAM MINOR; When: Call to arrange an appointment; Reason: Wound/Symptom Recheck, Recheck today's complaints, Worsening of conditions, Continuance of care. - Problem is an ongoing problem. - Symptoms have improved. Historical: - Allergies: tylenol; - Home Meds: 1. none - PMHx: none; - PSHx: Cesearean Section; Tubal ligation; - Social history: Smoking status: Patient uses tobacco products, heavy tobacco smoker. Patient/guardian denies using alcohol, street drugs, No barriers to communication noted, The patient speaks fluent Setswana, Speaks appropriately for age. - Family history: Not pertinent. - : The pt / caregiver states he / she is not on anticoagulants. Home medication list is obtained from the patient. - Exposure Risk Screening:: None identified. MACHINE OPERATOR HAY STACKER: 08/27 12:07 LMP 08/17/2016 ttb Vital Signs: 11:49 BP 127 / 66; Pulse 69; Resp 20; Temp 97.6(O); Pulse Ox 95% ; Weight 99.79 kg / 220 lbs; cmb Height 5 ft. 8 in. (172.72 cm); Pain 6/10; 14:31 BP 109 / 68; Pulse 61; Resp 18; Temp 98.3(O); Pulse Ox 98% on R/A; Pain 0/10; kc3 11:49 Body Mass Index 33.45 (99.79 kg, 172.72 cm) cmb MDM: 13:00 IV Saline Lock ordered. cc10 13:00 Undress patient appropriately for examination ordered. cc10 13:00 ketorolac 30 mg IVP once ordered. cc10 13:00 Solu-MEDROL 125 mg IVP once ordered. cc10 13:00 Albuterol-Ipratropium 3 ml Inhalation once ordered. cc10 13:00 Call Respiratory ordered. cc10 13:02 Basic Metabolic Profile Ordered. EDMS 13:02 CBC with Diff Ordered. EDMS 13:02 Cardiac Injury Profile Ordered. EDMS 13:02 Partial Thromboplastin Time Ordered. EDMS 13:02 Prothrombin Time Profile\E\INR Ordered. EDMS 13:02 Troponin Ordered. EDMS 13:02 Call Respiratory complete. rs6 13:02 ECG WITH READING ER PHYS+CARDIAG ordered. EDMS 13:02 CT Chest Angio R/O PE Ordered. EDMS 13:05 Financial registration complete. pm4 13:05 [facility] Payment Agreement was scanned into [employer] and attached to record. pm4 13:47 CBC with Diff Reviewed. cc10 13:47 Partial Thromboplastin Time Reviewed. cc10 13:47 Prothrombin Time Profile\E\INR Reviewed. cc10 13:52 Basic Metabolic Profile Reviewed. cc10 13:52 Cardiac Injury Profile Reviewed. cc10 13:52 Troponin Reviewed. cc10 15:26 T-Sheet-- Draft Copy was scanned into [employer] and attached to record. gb 15:26 ECG/EKG was scanned into [employer] and attached to record. gb Administered Medications: 13:23 Drug: ketorolac 30 mg [ketorolac 30 mg/mL (1 mL) injection solution (1 mL)] Route: IVP; kc3 Site: left antecubital; 13:23 Drug: Solu-MEDROL 125 mg [Solu-Medrol 500 mg intravenous solution (125 mg)] Route: IVP; kc3 Site: left antecubital; 13:25 Drug: Albuterol-Ipratropium 3 ml [ipratropium-albuterol 0.5 mg-3 mg(2.5 mg base)/3 mL ac1 nebulization soln (3 mL)] Route: Inhalation; 13:28 Follow up: bs clear. eduar tx well. ac1 Signatures: Dispatcher [employer] EDMS Priya Root, Reg Reg gb Starla Tomlinson, RN RN ttb Jesus Segura, PALisaC PA-C cc10 Luann Paul, TOOL OR DIE DRAWING CHECKER TOOL OR DIE DRAWING CHECKER rs6 Genny Crump RN RN kc3 Jued Mathews, Reg Reg pm4 Fatou Blanco RT ac1 The chart was reviewed and I authenticate all verbal orders and agree with the evaluation and treatment provided.Attachments: 13:05 [facility] Payment Agreement pm4 15:26 T-Sheet-- Draft Copy gb 15:26 ECG/EKG gb Chart Complete MTDD
== END 2016-08-27 14:33 | disposition home or self-care (01) ==
LOC: M ED 11:47
DX: J20.9 Acute bronchitis, unspecified (principal); Z72.0 Tobacco use; Z88.6 Allergy status to analgesic agent